=== PATIENT | male | born 1955 | race Caucasian/White ===

== ENCOUNTER 2020-06-04 07:54 | Outpatient (CLI) | payer OTHER ==
--- NOTE | 2020-06-04 09:19 | XRAY Report ---
PROCEDURE: Shoulder 3 View LT INDICATIONS: ARTHRALGIA TECHNIQUE: 3 views of the shoulder were acquired. COMPARISON: None. FINDINGS: Bones: No fractures or dislocations. No suspicious bony lesions. Visualized ribs appear intact. M ild to moderate left AC and glenohumeral joint degeneration. Soft tissues: No suspicious soft tissue calcifications. 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 If the patient's pain or other symptoms persist, consider further evaluation with MRI. Reviewed by: Lev Pandya MD on 06/04/2020 9:18 AM PDT Approved by: Lev Pandya MD on 06/04/2020 9:18 AM PDT Station ID: [id number]
== END 2020-06-04 07:55 | disposition home or self-care (01) ==
LOC: DI 07:54
PROVIDERS: ATTEND Internal Medicine
DX: M19.012 Primary osteoarthritis, left shoulder (principal)

== ENCOUNTER 2020-09-27 17:40 | Outpatient (CLI) | payer MEDICARE, OTHER | END 2020-09-27 17:41 | disposition home or self-care (01) | LOC: COV 17:40 | PROVIDERS: ATTEND Family Medicine | DX: Z20.822 Contact with and (suspected) exposure to COVID-19 (principal) ==

== ENCOUNTER 2020-10-06 11:24 | Outpatient (CLI) | payer MEDICARE ==
[2020-10-06 12:53] VITALS: BP 138/72
--- NOTE | 2020-10-06 12:53 | SLEEP CARE CONSULTATION ---
Information from patient questionnaire entered by Lizzy Venegas. I have reviewed and concur with the information entered by Lizzy Venegas. This document represents the service I personally performed and the decisions made by me, Angeli San ARNP. History of Present Illness Service Date and Time: 10/06/2020 1124 Reason for Visit: New patient, Previously diagnosed sleep apnea (25 years ago), sleep apnea on CPAP therapy (started 20 years ago) Chief Complaint: reports: Other (consultation - have machine already) Date of Onset: 25 years Usual bedtime: 11 pm Time it takes to fall asleep: 5 minutes Snores at night: Yes (without CPAP) Observed to quit breathing while asleep: Yes Sleeps alone due to snoring: No Number of times waking at night: 1-2 Reasons for waking at night: reports: Bathroom Toss, Turn, or Twitch while sleeping: No Recalls having dreams: Yes Usually gets out of bed at: 6 am Feels refreshed in the morning: Yes Morning headache: No Sleepy or fatigued during the day: No Ever fallen asleep while driving: No Takes day naps: No Dreams during day naps: No Prior sleep studies: Yes Additional HPI information: NORBERTO DURON was previously diagnosed to have unknown obstructive sleep apnea- hypopnea syndrome and comes in today to establish care for his CPAP therapy. - Parasomnia Symptoms Ever been unable to move upon waking from sleep: No Walks in sleep: No Talks in sleep: No Ever acted out dreams in sleep: No Ever felt weak in the knees when startled or emotional: No Bothered by creepy, crawly, restless sensations in legs: No Problems with memory or concentration: No CPAP Compliance Data - Data Reviewed with Patient Average duration of nightly device use: 4 hr 50 min Compliance rate %: 62.8 (180 days) Current pressure setting (cmH2O): 10 Humidity settin Heated hose settin Average residual AHI: 3.9 Average large leak: 3 min 40 sec Compliance data discussion: He has as CPAP machine that is about 4-5 years old, it is a Dreamstation. He is using a ResMed Airfit P10 nasal pillows mask. He last changed the cushion about 3 months ago. He has a back up mask if needed. He does not have any DME to get supplies from without a prescription. Subjective Patient concerns: denies: aerophagia, mask discomfort, air blowing in eyes, mask leak noise, condensation in mask/hose, nasal congestion, dry mouth, nose, throat, epistaxis, other Observed to snore while using device: No Current pressure setting perceived as: comfortable On therapy, patient: reports: sleeping better, awakening more refreshed, being more awake and alert during the day, more rested overall. 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 Patient is and lives in [facility] Have you smoked in the past 12 months: No Cigarettes per day (20/pack): 20 Years of smokin Quit date: 1973 Smoking Pack Years: 2.0 Alcohol use: No Caffeine use: Yes Caffeine amount and frequency: 2 cups in the AM Family History Family history of sleep disordered breathing: No Allergies and Home Medications Drug allergies reviewed: Yes (NKDA) Home medication list reviewed: Yes Allergy and home medication list: Trazadone nightly 25 mg Ezetimide (reduces cholesterol) 10 mg Escitalopram (SSRI) 5 mg Amlodipine 10 mg Lisinopril HCTZ Atorvastatin 25 mg Review of Systems Weight gain over past 5 years: 3-5 Weight loss over past 5 years: 3-5 Cardiovascular: reports: high blood pressure Urinary: reports: frequency Psychiatric: reports: Attention Deficit Hyperactivity Ear/Nose/Throat: reports: nasal congestion, wisdom teeth removed. denies: tonsillectomy Endocrine: reports: increased urination Physical Exam Blood Pressure: 138/72 Cuff size: regular Heart Rate: 68 O2 Saturation: 97 Height: 5 ft 9 in Weight: 182 lb Body Mass Index: 26.9 BMI Classification: Overweight Heart: regular rate and rhythm Lungs: clear bilaterally Impression and Plan 1. Obstructive Sleep Apnea-Hypopnea Syndrome, unknown, with fair treatment compliance and good apnea control. On CPAP therapy, the patient has better sleep quality and is more rested overall. Once we obtain his sleep study and all is in order we can send a prescription to update his supplies. He asked about updating his machine. I advised him that if his machine is 5 years or older we can update his machine and we will have to have him back in the office for a follow up 1 month after getting new machine. He is to get us this information. If he is due for a new machine, I will write a prescription to update machine as well. Patient's apnea severity and rationale for treatment to reduce apnea, improve sleep quality and reduce cardiovascular and cerebrovascular events was reviewed. I also reviewed the benefit of consistent device use of CPAP for hypertension, congestive heart failure, coronary heart disease, and depression. * Continue auto CPAP pressure at 10 cmH2O * Obtain previous sleep study to be able to send prescription for update of supplies * If CPAP machine is due for update will send prescription for this and have patient follow up 1 month after getting it * Notify me if snoring with mask or feeling that the pressure is too much or too little * Call this office if any problems using CPAP * Return for follow up in 1 year, or sooner if concerns arise Counseling Topics: Spare mask Visit Type: In Office Time Spent with Patient (minutes): 33 Provider Statement: I spent 100% of the Face to Face Visit with the patient with greater than 50% spent counseling the patient and coordination of care.
== END 2020-10-06 11:25 | disposition home or self-care (01) ==
LOC: SC 11:24
PROVIDERS: ATTEND Nurse Practitioner Family
DX: G47.33 Obstructive sleep apnea (adult) (pediatric) (principal); E66.3 Overweight; Z68.26 Body mass index [BMI] 26.0-26.9, adult
CPT/HCPCS: 99203; G0463; 99212

== ENCOUNTER 2024-01-09 10:48 | Outpatient (CLI) | payer MEDICARE ==
--- NOTE | 2024-01-09 11:56 | Sleep Patient Instructions ---
Sleep Center Visit Summary - Patient Visit Information Reason for Visit: Initial consultation - Patient Instructions Additional Instructions: You will continue with CPAP therapy with pressure changed to 11 cmH2O. A supply prescription will be updated with your DME. Please follow up with the sleep care office in 1 year. - Clinic Information Contact: [facility] [address] [place] [id number] [email or web address] T: [phone]
--- NOTE | 2024-01-09 12:01 | SLEEP CARE CONSULTATION ---
Information from patient questionnaire entered by Sharon Fraire. I have reviewed and concur with the information entered by Sharon Fraire. This document represents the service I personally performed and the decisions made by me, Angeli San ARNP. History of Present Illness Service Date and Time: 01/09/2024 1048 Reason for Visit: New patient, Previously diagnosed sleep apnea, sleep apnea on CPAP therapy, Re-establish care Date of Onset: 25 years Usual bedtime: 2200 Time it takes to fall asleep: 1-5MIN Snores at night: Yes Observed to quit breathing while asleep: Yes Sleeps alone due to snoring: No Number of times waking at night: 1-3 Reasons for waking at night: reports: Bathroom Toss, Turn, or Twitch while sleeping: No Recalls having dreams: Yes Usually gets out of bed at: 0700 Feels refreshed in the morning: No Morning headache: No Sleepy or fatigued during the day: Yes Ever fallen asleep while driving: No Takes day naps: Yes Dreams during day naps: No Prior sleep studies: Yes Year and Where: 2016 through [place] Type of Sleep Study: Home sleep study Additional HPI information: NORBERTO DURON was diagnosed to have mild, AHI 9.3, obstructive and central sleep apnea-hypopnea syndrome and comes in today to re-establish care for CPAP therapy. - Parasomnia Symptoms Ever been unable to move upon waking from sleep: No Walks in sleep: No Talks in sleep: No Ever acted out dreams in sleep: Yes Ever felt weak in the knees when startled or emotional: Yes Bothered by creepy, crawly, restless sensations in legs: No Problems with memory or concentration: No CPAP Compliance Data - Data Reviewed with Patient Average duration of nightly device use: 5 hours 44 mins Compliance rate %: 80 ( days used) Current pressure setting (cmH2O): 10 Average residual AHI: 4.4 Central apnea: 0.6 Obstructive apnea: 3 Hypopnea: 0.8 Average large leak: 4 secs Compliance data discussion: He has a Dreamstation that has been recertified. He changed his mask to a Dreamwear nasal cushion. He gets his supplies from [employer]. 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 Have you smoked in the past 12 months: No Cigarettes per day (20/pack): 10 Years of smokin Quit date: 1974 Smoking Pack Years: 1.5 Alcohol use: No Caffeine use: Yes Caffeine amount and frequency: 3CUPS TEA DAILY Family History Family history of sleep disordered breathing: No Allergies and Home Medications Known drug allergies: Yes ( LISTED) Drug allergies reviewed: Yes Home medication list reviewed: Yes (as listed) Allergy and home medication list: Allergies Fxvinuv-LIL-MqW Reductase Inhibitor Allergy (Verified 01/09/24 11:09) Home Medications Albuterol Sulf [Ventolin Hfa Inhaler] See Rx Instructions .ROUTE .COMPLEX 01/09/24 [History] Ascorbic Acid [Vitamin C with Diana Hips] See Rx Instructions .ROUTE .COMPLEX 01/09/24 [History] Aspirin [Vazalore] See Rx Instructions .ROUTE .COMPLEX 01/09/24 [History] Azelastine HCl See Rx Instructions .ROUTE .COMPLEX 01/09/24 [History] Ciclesonide [Alvesco] See Rx Instructions .ROUTE .COMPLEX 01/09/24 [History] Docosahexaenoic Acid [Atabex Dha 200] See Rx Instructions .ROUTE .COMPLEX 01/09/24 [History] Evolocumab [Repatha Sureclick] See Rx Instructions .ROUTE .COMPLEX 01/09/24 [History] Lisinopril [Zestril] See Rx Instructions .ROUTE .COMPLEX 01/09/24 [History] Mometasone Furoate See Rx Instructions .ROUTE .COMPLEX 01/09/24 [History] Multivitamin See Rx Instructions .ROUTE .COMPLEX 01/09/24 [History] Pantoprazole [Protonix] See Rx Instructions .ROUTE .COMPLEX 01/09/24 [History] Tamsulosin [Flomax] See Rx Instructions .ROUTE .COMPLEX 01/09/24 [History] Triamcinolone 0.1% Cream [Kenalog 0.1% Cream] See Rx Instructions .ROUTE .COMPLEX 01/09/24 [History] Turmeric See Rx Instructions .ROUTE .COMPLEX 01/09/24 [History] Ubidecarenone [Co Q-10] See Rx Instructions .ROUTE .COMPLEX 01/09/24 [History] Venlafaxine [Effexor] See Rx Instructions .ROUTE .COMPLEX 01/09/24 [History] amLODIPine [Norvasc] See Rx Instructions .ROUTE .COMPLEX 01/09/24 [History] carvediloL [Coreg] See Rx Instructions .ROUTE .COMPLEX 01/09/24 [History] hydroCHLOROthiazide [Hydrodiuril] See Rx Instructions .ROUTE .COMPLEX 01/09/24 [History] traZODone [Desyrel] See Rx Instructions .ROUTE .COMPLEX 01/09/24 [History] Review of Systems Weight gain over past 5 years: 10 Cardiovascular: reports: high blood pressure Gastrointestinal: reports: heartburn Urinary: reports: frequency Psychiatric: reports: Attention Deficit Hyperactivity, depression Ear/Nose/Throat: reports: wisdom teeth removed Endocrine: reports: sluggishness, too hot or cold, increased urination, unexplained weakness Musculoskeletal: reports: joint pain, muscle pain or cramping Immunologic: reports: sneezing, allergies to food or environment Physical Exam Vital signs obtained and entered by: SHARON Bhat MA Blood Pressure: 144/82 (RIGHT ARM) Cuff size: regular Heart Rate: 74 O2 Saturation: 98 Height: 5 ft 9 in Weight: 182 lb 9.6 oz Body Mass Index: 26.9 BMI Classification: Overweight Neck circumference: 16 Heart: regular rate and rhythm Lungs: clear bilaterally Impression and Plan 1. Obstructive and Central Sleep Apnea-Hypopnea Syndrome, mild, with good treatment compliance and good apnea control. On CPAP therapy, the patient has b bayron sleep quality and is more rested overall. He returns to re-establish care. His average residual AHI is at 4.4. The patients pressure will be changed to autoCPAP 11 cmH20 since average residual is borderline. Patient advised to contact me if pressure change is uncomfortable so that it can be adjusted. Goals for apnea control discussed. Patient's apnea severity and rationale for treatment to reduce apnea, improve sleep quality and reduce cardiovascular and cerebrovascular events was reviewed. I also reviewed the benefit of consistent device use of CPAP for hypertension, cardiac disease and depression. 2. Overweight, unspecified. Currently patients BMI is 26.9. Obesity increases the risk of apnea, CPAP pressure requirements and overall health risks especially cardiovascular and diabetes. Thus patient is advised to maintain healthy weight. * Change auto CPAP pressure to 11 cmH2O * Update supply prescription * Notify me if snoring with mask or feeling that the pressure is too much or too little * Call this office if any problems using CPAP * Return for follow up in 12 months, or sooner if concerns arise Adjust device pressure to (cmH2O): 11 Counseling Topics: Spare mask, Weight control Prescriptions: Device supplies Follow up with Sleep Care in: 1 year Visit Type: In Office Time Spent with Patient (minutes): 30 Provider Statement: I spent 100% of the Face to Face Visit with the patient with greater than 50% spent counseling the patient and coordination of care.
[2024-01-09 12:03] VITALS: BP 144/82; O2SAT 98
== END 2024-01-09 10:49 | disposition home or self-care (01) ==
LOC: SC 10:48
PROVIDERS: ATTEND Nurse Practitioner Family
DX: G47.33 Obstructive sleep apnea (adult) (pediatric) (principal); E66.3 Overweight; Z68.26 Body mass index [BMI] 26.0-26.9, adult; Z87.891 Personal history of nicotine dependence
CPT/HCPCS: 99203; G0463; 99212